=== PATIENT | male | born 1945 | race Caucasian/White ===

== ENCOUNTER 2018-09-15 16:14 | Emergency (ER) | payer MEDICARE, OTHER ==
[2018-09-15 16:19] VITALS: BP 117/50; PULSE 65; TEMP 97.9; BMI 26.6
--- NOTE | 2018-09-15 16:20 | PDOC ---
Rapid Medical Evaluation Chief Complaint: Pain Time Seen by Provider: 09/15/18 16:16 Medical Evaluation: Allergies Allergy/AdvReac Type Severity Reaction Status Date / Time No Known Allergies Allergy Verified 09/15/18 16:16 09/15/18 16:17 73 year old male c/o back pain radiating down buttocks and left leg for 1 month. today pain is worse, Pe; patient alert ox3. A: leg pain sciatica P: patient to the ER for further management of care/ 09/15/18 16:18 Discharge Disposition - Diagnosis Sciatic leg pain - Referrals - Patient Instructions - Post Discharge Activity
[2018-09-15] MEDS ORDERED: ACETAMINOPHEN 500 MG TABLET (FP) ONE (16:59)
--- NOTE | 2018-09-15 17:02 | PDOC ---
History of Present Illness - General Chief Complaint: Pain Stated Complaint: LT HIP AND LEG PAIN Time Seen by Provider: 09/15/18 16:16 History Source: Patient Exam Limitations: No Limitations - History of Present Illness Initial Comments: 09/15/18 17:05 Here with acute onset of chronic back pain. has suffered with low back primarily left side for many years, has been told in the past he had a disc problem. Has never had surgery, but has had multiple steroid injections too many joints. States onset was approximately 3-4 days ago, and denies any changes in activity, exercise, refuses any heavy lifting or known injury. 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 Is no no longer working but suffers intermittent pain to his low back. States this onset radiates down his left buttock and posterior leg in the sciatic nerve distribution. Denies numbness or tingling to foot, denies any problems with bowel or bladder, no fevers or other illness presently Occurred: reports: last week Severity: reports: moderate Pain Location: reports: back Associated Symptoms (Fall): denies symptoms Past History - Travel Traveled outside of the country in the last 30 days: No Close contact w/someone who was outside of country & ill: No - Past Medical History Allergies/Adverse Reactions: Allergies Allergy/AdvReac Type Severity Reaction Status Date / Time No Known Allergies Allergy Verified 09/15/18 16:16 Home Medications: Ambulatory Orders Tamsulosin HCl 0.4 mg PO DAILY 10/15/12 Atorvastatin Ca [Lipitor] 10 mg PO HS #0 tablet 10/21/12 Rivaroxaban [Xarelto -] 20 mg PO DAILY@1800 #0 tablet 10/21/12 Cetirizine HCl [Zyrtec] 10 mg PO DAILY 12/31/12 Meclizine HCl [Bonine] 25 mg PO PRN PRN 11/07/13 Metoprolol Succinate [Toprol XL -] 25 mg PO DAILY 11/07/13 Albuterol 0.083% Nebulizer Josi [Ventolin 0.083% Nebulizer Soln -] 1 neb NEB Q6H #20 vial 10/27/14 Albuterol Sulfate [Proair Hfa -] 1 - 2 inh PO TID 10/27/14 Escitalopram Oxalate [Lexapro -] 10 mg PO DAILY 10/27/14 Budesonide/Formeterol Fumarate [SYMBICORT 160/4.5mcg -] 1 inh PO BID #1 cannister 11/10/14 Acetaminophen 1,000 mg PO Q6H PRN #30 tablet 09/15/18 Cyclobenzaprine HCl 10 mg PO Q8H PRN #14 tablet 09/15/18 Asthma: Yes Cardiac Disorders: Yes (STENT PLACEMENT) CVA: (mini stroke) COPD: No Disorders: Yes (prostate enlarged) HTN: (low BP) - Surgical History Cardiac Surgery: Yes (THROUGH MOUTH AND GROIN 2012) - Immunization History Immunization Up to Date: Yes - Suicide/Smoking/Psychosocial Hx Smoking Status: No Smoking History: Never smoked Have you smoked in the past 12 months: No Number of Cigarettes Smoked Daily: 0 Hx Alcohol Use: No Drug/Substance Use Hx: No Substance Use Type: None Trauma Specific PMHX - Complaint Specific PMHX Back Injury: Yes Review of Systems - Review of Systems Able to Perform ROS?: Yes Is the patient limited Austrian proficient: Yes Constitutional: Yes: Symptoms Reported, See HPI, Malaise. No: Fever, Loss of Appetite HEENTM: Yes: See HPI. No: Symptoms Reported Respiratory: Yes: See HPI. No: Symptoms reported, Cough Musculoskeletal: Yes: Symptoms Reported, See HPI, Back Pain, Muscle Pain All Other Systems: Reviewed and Negative *Physical Exam - Vital Signs Last Vital Signs Temp Pulse Resp BP Pulse Ox 97.9 F 65 18 117/50 L 97 09/15/18 16:16 09/15/18 16:16 09/15/18 16:16 09/15/18 16:16 09/15/18 16:16 - Physical Exam General Appearance: Yes: Nourished, Appropriately Dressed, Apparent Distress, Mild Distress HEENT: positive: BRI, Normal ENT Inspection, TMs Normal, Pharynx Normal Musculoskeletal: positive: Normal Inspection, Decreased Range of Motion, Muscle Spasm (mild palpable spasm noted to paravertebral spinous muscles on the left side. Has no true bone tenderness crepitus or step-offs to lumbar spine. Movement is slow, and walks with guarding to the left leg. No foot drop, neurovascular intact to foot.). negative: Vertebral Tenderness Extremity: positive: Normal Capillary Refill, Normal Range of Motion (but slow to respond due to pain and low back) Integumentary: positive: Dry, Warm, Pale Neurologic: positive: purchasing agent II-XII NML intact, Fully Oriented, Alert, Normal Mood/ Affect, Normal Response, Motor Strength 5/5 Progress Note - Progress Note Progress Note: Acute on chronic low back pain. Will treat with NSAIDs and cyclobenzaprine. Discussed need to follow-up with PMD for potential soft tissue studies and potential prescription for physical therapy and referral to specialists. *DC/Admit/Observation/Transfer Diagnosis at time of Disposition: Acute exacerbation of chronic low back pain - Discharge Dispostion Disposition: HOME Condition at time of disposition: Stable Decision to Admit order: No - Prescriptions Prescriptions: Acetaminophen 1,000 mg PO Q6H PRN #30 tablet PRN Reason: Pain Cyclobenzaprine HCl 10 mg PO Q8H PRN #14 tablet PRN Reason: spasm - Referrals - Patient Instructions Printed Discharge Instructions: Managing Chronic Low Back Pain Additional Instructions: Rest, no heavy lifting or exercise until pain is resolved Hot soaks to neck and low back as often as possible/hot showers or Jacuzzis No massage or therapy until spasm is gone Continue Tylenol 500 mg tablet, 2 tablet every 6 hours for the next 3 days then as needed for pain and swelling Cyclobenzaprine 1-10mg every 8 hours as needed for spasm If not significant improvement within 24 hours with medication and rest regime, followup with private physician for change in medications and /or therapy. - Post Discharge Activity Forms/Work/School Notes: Back to Work
== END 2018-09-15 17:47 | disposition home or self-care (01) ==
LOC: JERFT 16:14
DX: M54.5 Low back pain (principal); J45.909 Unspecified asthma, uncomplicated; N40.0 Benign prostatic hyperplasia without lower urinary tract symptoms; I25.10 Atherosclerotic heart disease of native coronary artery without angina pectoris; Z95.5 Presence of coronary angioplasty implant and graft; I95.9 Hypotension, unspecified; Z86.73 Personal history of transient ischemic attack (TIA), and cerebral infarction without residual deficits
CPT/HCPCS: 99281-25

== ENCOUNTER 2023-10-06 04:17 | Day surgery (SDC) | payer OTHER ==
[2023-10-05 10:50] VITALS: BMI 26.6
[~2023-10-06 04:17] MED LIST: ACETAMINOPHEN 325 MG TABLET (FP) PO PRN
[2023-10-06] MEDS ORDERED: LIDOCAINE HCL/PF 2% SDV 5ML VIAL ONE (07:29)
[2023-10-06] MEDS ORDERED: LIDOCAINE HCL/PF 1% SDV 5ML VIAL ONE (07:29)
[2023-10-06] MEDS ORDERED: BUPIVACAINE HCL/PF 0.75% 10 ML VIAL ONE (07:30)
[2023-10-06] MEDS ORDERED: POVIDONE-IODINE 5% OPHTHALMIC PREP 30 ML SOLUTION ONE (07:30)
[2023-10-06] MEDS ORDERED: BSS (NA/CA/MG/K) BALANCED SALT SOLUTION OPHTH SOLN 15 ML BOTTLE ONE (07:30)
[2023-10-06] MEDS ORDERED: PHENYLEPHRINE/KETOROLAC 4 ML VIAL IO ONE (07:30)
[2023-10-06] MEDS ORDERED: KETOROLAC TROMETHAMINE 0.5% EYE DROP 1 DROP DROPS ONE (07:55)
[2023-10-06] MEDS ORDERED: CYCLOPENTOLATE HCL 1% OPHTH SOLN 2 ML BOTTLE ONE (07:55)
[2023-10-06] MEDS ORDERED: TROPICAMIDE 1% OPHTH SOLN 15 ML BOTTLE ONE (07:55)
[2023-10-06] MEDS ORDERED: PHENYLEPHRINE 2.5% OPTHALMIC DROP 2ML BOTTLE ONE (07:55)
[2023-10-06] MEDS ORDERED: OFLOXACIN 0.3% OPHTHALMIC SOLUTION 5 ML BOTTLE ONE (07:56)
[2023-10-06] MEDS: TROPICAMIDE 1% OPHTH SOLN 15 ML BOTTLE OP SCH (07:57)
[2023-10-06] MEDS: CYCLOPENTOLATE HCL 1% OPHTH SOLN 2 ML BOTTLE OP SCH (07:58)
[2023-10-06] MEDS: KETOROLAC TROMETHAMINE 0.5% EYE DROP 1 DROP DROPS OP SCH (07:58)
[2023-10-06] MEDS: PHENYLEPHRINE 2.5% OPHTH SOLN 15 ML BOTTLE OP SCH (07:59)
[2023-10-06] MEDS: OFLOXACIN 0.3% OPHTHALMIC SOLUTION 5 ML BOTTLE OP SCH (07:59)
[2023-10-06] MEDS: LIDOCAINE HCL/PF 2% SDV 5ML VIAL INF ONE ×2 (09:21)
[2023-10-06] MEDS: BUPIVACAINE HCL/PF 0.75% 10 ML VIAL RB ONE (09:21)
[2023-10-06] MEDS: POVIDONE-IODINE 5% OPHTHALMIC PREP 30 ML SOLUTION OS ONE (09:24)
[2023-10-06] MEDS ORDERED: PROPOFOL 20 ML ONE (10:11)
[2023-10-06] MEDS ORDERED: MIDAZOLAM HCL 2 MG/2 ML SINGLE DOSE VIAL ONE (10:11)
[2023-10-06] MEDS: LIDOCAINE HCL 1% PRESERVATIVE FREE - 30ML VIAL IO ONE (10:29)
[2023-10-06] MEDS: BSS (NA/CA/MG/K) BALANCED SALT SOLUTION OPHTH SOLN 15 ML BOTTLE IO ONE (10:30)
[2023-10-06] MEDS: CHONDROITIN SU A/HYALUR SOD 1 KIT IO ONE (10:31)
[2023-10-06] MEDS: PHENYLEPHRINE/KETOROLAC 4 ML VIAL IO ONE (10:35)
[2023-10-06 11:08] VITALS: BP 125/67; PULSE 56; RESP 16; TEMP 98
== END 2023-10-06 11:46 | disposition home or self-care (01) ==
LOC: JASU-SURG 04:17
PROVIDERS: ATTEND Ophthalmology
PROC: 08RK3JZ Replacement of Left Lens with Synthetic Substitute, Percutaneous Approach (ICD-10-PCS; principal; 2023-10-06 10:00)
DX: H26.9 Unspecified cataract (principal)
CPT/HCPCS: J1097; V2632

== ENCOUNTER 2023-10-20 04:22 | Day surgery (SDC) | payer OTHER ==
[2023-10-05 10:36] VITALS: BMI 28.8
[2023-10-20] MEDS ORDERED: TETRACAINE 0.5% OPHTH SOLN 2 ML BOTTLE ONE (08:27)
[2023-10-20] MEDS ORDERED: EPINEPHrine/PF 1 MG/1 ML (1:1,000) AMPULE ONE (08:27)
[2023-10-20] MEDS ORDERED: LIDOCAINE HCL/PF 2% SDV 5ML VIAL ONE (08:27)
[2023-10-20] MEDS ORDERED: LIDOCAINE HCL/PF 1% SDV 5ML VIAL ONE (08:27)
[2023-10-20] MEDS ORDERED: BUPIVACAINE HCL/PF 0.75% 10 ML VIAL ONE (08:27)
[2023-10-20] MEDS ORDERED: POVIDONE-IODINE 5% OPHTHALMIC PREP 30 ML SOLUTION ONE (08:28)
[2023-10-20] MEDS ORDERED: TRYPAN BLUE 0.5 ML DISP.SYRIN ONE (08:30)
[2023-10-20] MEDS ORDERED: PHENYLEPHRINE/KETOROLAC 4 ML VIAL IO ONE (08:30)
[2023-10-20] MEDS ORDERED: OFLOXACIN 0.3% OPHTHALMIC SOLUTION 5 ML BOTTLE ONE (08:53)
[2023-10-20] MEDS ORDERED: CYCLOPENTOLATE HCL 1% OPHTH SOLN 2 ML BOTTLE ONE (08:53)
[2023-10-20] MEDS ORDERED: TROPICAMIDE 1% OPHTH SOLN 15 ML BOTTLE ONE (08:53)
[2023-10-20] MEDS ORDERED: PHENYLEPHRINE 2.5% OPTHALMIC DROP 2ML BOTTLE ONE (08:53)
[2023-10-20] MEDS ORDERED: KETOROLAC TROMETHAMINE 0.5% EYE DROP 1 DROP DROPS ONE (08:53)
[2023-10-20 09:04] VITALS: RESP 18
[2023-10-20] MEDS: TROPICAMIDE 1% OPHTH SOLN 15 ML BOTTLE OP SCH (09:05)
[2023-10-20] MEDS: CYCLOPENTOLATE HCL 1% OPHTH SOLN 2 ML BOTTLE OP SCH (09:05)
[2023-10-20] MEDS: KETOROLAC TROMETHAMINE 0.5% EYE DROP 1 DROP DROPS OP SCH (09:05)
[2023-10-20] MEDS: OFLOXACIN 0.3% OPHTHALMIC SOLUTION 5 ML BOTTLE OP SCH (09:06)
[2023-10-20] MEDS: PHENYLEPHRINE 2.5% OPHTH SOLN 15 ML BOTTLE OP SCH (09:06)
[2023-10-20] MEDS ORDERED: PROPOFOL 20 ML ONE (11:07)
[2023-10-20] MEDS: BUPIVACAINE HCL/PF 0.75% 10 ML VIAL NR ONE ×2 (11:12)
[2023-10-20] MEDS: LIDOCAINE HCL/PF 2% SDV 5ML VIAL INF ONE ×2 (11:12)
[2023-10-20] MEDS: POVIDONE-IODINE 5% OPHTHALMIC PREP 30 ML SOLUTION OD ONE ×2 (11:14)
[2023-10-20] MEDS: BSS (NA/CA/MG/K) BALANCED SALT SOLUTION OPHTH SOLN 15 ML BOTTLE IO ONE ×2 (11:21)
[2023-10-20] MEDS: LIDOCAINE HCL 1% PRESERVATIVE FREE - 30ML VIAL IO ONE ×2 (11:22)
[2023-10-20] MEDS: CHONDROITIN SU A/HYALUR SOD 1 KIT IO ONE ×2 (11:23)
[2023-10-20] MEDS: TRYPAN BLUE 0.5 ML DISP.SYRIN IO ONE (11:24)
[2023-10-20] MEDS: PHENYLEPHRINE/KETOROLAC 4 ML VIAL IO ONE ×2 (11:25)
[2023-10-20 13:17] VITALS: BP 124/66; PULSE 61; TEMP 97.8
== END 2023-10-20 12:30 | disposition home or self-care (01) ==
LOC: JASU-SURG 04:22
PROVIDERS: ATTEND Ophthalmology
PROC: 08RJ3JZ Replacement of Right Lens with Synthetic Substitute, Percutaneous Approach (ICD-10-PCS; principal; 2023-10-20 11:00)
DX: H26.9 Unspecified cataract (principal)
CPT/HCPCS: J1097; V2632